=== PATIENT | female | born 1980 | race Caucasian/White ===

== ENCOUNTER → 2021-05-03 16:49 | Outpatient (CLI) | payer OTHER, SELFPAY ==
--- NOTE | ~2021-05-03 | MM_ITS ---
EXAMINATION: MM scrn bernice implant BI w nishant HISTORY: Screening mammogram TECHNIQUE: Craniocaudal and mediolateral oblique 3-D tomosynthesis images with implant displacement a nd synthetic 2-D images were generated. Craniocaudal and mediolateral oblique views of the breasts wi thout implant displacement were obtained using full field digital mammography. CAD analysis was submi tted and interpreted. COMPARISON: None, baseline BREAST PARENCHYMAL COMPOSITION: There are scattered areas of fibroglandular density. FINDINGS: There is no evidence of suspicious mass, calcification, or architectural distortion to sugg est malignancy in either breast. IMPRESSION: 1. No mammographic evidence of malignancy. 2. Recommend routine screening mammography in one year. BI-RADS Category 1: Negative Reviewed, dictated and finalized at location A.
== END ==
PROVIDERS: PCP Nurse Practitioner Family; Visit Provider Obstetrics & Gynecology
DX: Z12.31 Encounter for screening mammogram for malignant neoplasm of breast (principal)
CPT/HCPCS: 77063; 77067

== ENCOUNTER 2021-12-21 16:41 | Emergency (ER) | payer BC, OTHER, SELFPAY ==
[2021-12-21] VITALS (20 sets, daily range): BP systolic 101–121; BP diastolic 63–87; PULSE 51–81; RESP 13–21; TEMP 36.8–37; O2SAT 99
--- NOTE | ~2021-12-21 | XR_ITS ---
XR chest 2V DATE: 12/21/2021 17:41 INDICATION: Palpitations TECHNIQUE: PA and lateral chest COMPARISON: None FINDINGS: Normal heart size. No hilar or mediastinal enlargement. No pulmonary infiltrate or consolid ation, pleural effusion or pulmonary vascular congestion or pneumothorax. Included skeletal structure s are unremarkable. IMPRESSION: Negative Reviewed, dictated and finalized at location A. IMPRESSION: Negative
--- NOTE | 2021-12-21 16:45 | ECG_ITS ---
Measurements Intervals [place] Rate: 76 P: 35 SC: 175 QRS: 2 QRSD: 73 T: 13 QT: 359 QTc: 404 Interpretive Statements SINUS RHYTHM WITH SINUS ARRHYTHMIA NORMAL ECG NO PREVIOUS ECG AVAILABLE FOR COMPARISON Electronically Signed On 12-21-2021 19:05:56 CDT by Kee Lowery D.O.
[2021-12-21 17:27] LABS: Basophils Absolute Auto 0.1 K/mm3 (0.0-0.1); Basophils Percent Auto 1.1 % (0.2-1.2); Eosinophils Absolute Auto 0.1 K/mm3 (0-0.3); Eosinophils Percent Auto 2.3 % (0-4.4); Hematocrit 38.3 % (37.0-47.0); Hemoglobin 13.3 g/dL (12.0-15.0); Immature Granulocyte Absolute 0.01 K/mm3 (0.00-0.031); Immature Granulocyte Percent A 0.2 % (0-0.5); Lymphocytes Absolute Auto 1.14 K/mm3 (0.9-3.2); Lymphocytes Percent Auto 25.7 % (18.3-44.2); Mean Corpuscular HGB Conc 34.7 g/dl (32-36); Mean Corpuscular Hemoglobin 30.1 pg (26-34); Mean Corpuscular Volume 86.7 fl (80-100); Monocytes Absolute Auto 0.4 K/mm3 (0.1-0.6); Monocytes Percent Auto 8.8 % (2.6-8.5); Neutrophils Absolute Auto 2.8 K/mm3 (1.3-6.7); Neutrophils Percent Auto 61.9 % (45.5-73.1); Platelet Count Result 241 k/mm3 (150-375); Red Blood Count 4.42 M/mm3 (4.2-5.4); Red Cell Distribution Width 11.9 % (11.5-14.5); White Blood Count 4.4 K/mm3 (4.5-10.0)
[2021-12-21 17:40] LABS: Alanine Aminotransferase 17 U/L (6-35); Albumin Level 4.3 g/dL (3.5-5.1); Alkaline Phosphatase 28 U/L (38-126); Anion Gap 8 mmol/L (8-16); Aspartate Amino Transferase 19 U/L (14-36); Bilirubin,Total 0.8 mg/dL (0.2-1.3); Blood Urea Nitrogen 9 mg/dL (7-17); Calcium 8.6 mg/dL (8.4-10.2); Carbon Dioxide 25 mmol/L (22-30); Chloride 105 mmol/L (98-107); Estimated CRCL calculation 69 ml/min; Estimated Glomerular Filt Rate > 60; Glucose 87 mg/dL (65-110); Lipase 26 U/L (23-300); Potassium 3.5 mmol/L (3.4-5.0); Sodium 138 mmol/L (137-145)
[2021-12-21 17:41] LABS: INR 1.2; Prothrombin Time 14.6 Seconds (11.1-14.7)
[2021-12-21 17:42] LABS: Partial Thromboplastin Time 31.2 SECONDS (22.3-36.8)
[2021-12-21 17:53] LABS: Troponin I < 0.012 ng/mL (0.000-0.034)
--- NOTE | 2021-12-21 18:31 | ED.ARRPALP ---
HPI - Arrhythmia/Palpitations General Chief Complaint: Arrhythmia/Palpitations Stated Complaint: palpations Time Seen by Provider: 12/21/21 17:43 History of Present Illness HPI narrative: Patient is a 41-year-old female with a history of hypothyroidism presenting with palpitations. Patient states that she has had several months of intermittent palpitations which she is currently having worked up. States that today she again developed palpitations that felt typical of her episodes but she then became short of breath and lightheaded. She became concerned that something more serious was going on so she came in for evaluation. She states that she has an appointment with her PCP in 1 week as well as an appointment with a professor of psychology regarding her ongoing palpitations. She does take propanolol as needed. States that recently she has had URI symptoms. She is vaccinated for COVID but not influenza. She denies fevers, headache, cough, abdominal pain, vomiting, diarrhea, leg swelling, dysuria. Related Data Home Medications Medication Instructions Recorded Confirmed levothyroxine 112 mcg tablet 112 mcg PO DAILY 03/08/21 03/08/21 (Synthroid) linaclotide 145 mcg capsule 145 mcg PO DAILY 03/08/21 03/08/21 (Linzess) propranolol 10 mg tablet See Rx Instructions .Route .COMPLEX 12/21/21 topiramate 50 mg tablet (Topamax) 50 mg PO DAILY 12/21/21 Allergies Allergy/AdvReac Type Severity Reaction Status Date / Time codeine Allergy Unknown Dizziness Verified 12/21/21 17:29 [facility] Past Medical History Medical History Anemia Anxiety and depression major depressive disorder - on meds Constipation Encounter for well woman exam Epilepsy no seizures in 12 years Hyperthyroidism Migraines Screening mammogram, encounter for Surgical History Surgical History Delivery by section 09/19/1999 ; 07/19/2001; 07/19/2004 History of appendectomy (~05/20/99) History of gynecological procedure (09/13/11) hscope D&C / Novasure ablation removal of IUD / Lap T/L History of gynecological procedure (03/13/11) left ovarian cystectomy History of gynecological procedure (05/12/09) mirena iud insertion/ iud removal 09/13/2011 [place] History of gynecological procedure (09/22/07) mirena iud removal /iud insertion 06/18/2005 History of robot-assisted laparoscopic hysterectomy (05/03/15) RATLH History of tonsillectomy (06/18/09) Family History Family History Father Cerebrovascular accident Grandparent Diabetes mellitus maternal grandmother Sibling Hypertension brother Social History Social History Smoking status: Former smoker Tobacco type: cigarettes and e-cigarettes/vaping Smoking end date: 02/18/11 Alcohol intake: never Substance use: never Substance use type: does not use 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 HEAD: Normocephalic, atraumatic. EYES: PERRLA and EOMI. ENT: Nares clear, no rhinorrhea or epistaxis. Mucous membranes moist. NECK: Supple. CHEST: Clear to auscultation. No respiratory distress. HEART: Regular rate and rhythm. No murmur heard. Normal peripheral pulses. ABDOMEN: Soft, nontender, nondistended, normal active bowel sounds. EXTREMITIES: Normal range of motion. No edema. SKIN: Warm, dry, no rash. NEURO: No focal deficits. Alert and oriented x3. PSYCH: Normal mood and affect. Course Vital Signs Vital signs: Vital Signs Temperature 98.6 F 12/21/21 16:53 Pulse Rate 81 12/21/21 16:53 Respiratory Rate 20
--- NOTE | 2021-12-21 18:43 | PC.NURSE ---
Talked to Orestes in lab at 18:44 to add on MG
[2021-12-21] MEDS: SODIUM CHLORIDE 0.9% IV 1,000 ML 999 ML IV CONT (19:24)
[2021-12-21 19:56] LABS: Influenza A QL RT-PCR Negative (Negative); Influenza B QL RT-PCR Negative (Negative); SARS-CoV-2 RNA PCR Negative
[2021-12-21 20:26] LABS: Troponin I < 0.012 ng/mL (0.000-0.034)
[2021-12-21 20:41] LABS: Free T4 Free Thyroxine Reflex 0.89 ng/dL (0.78-2.19)
[2021-12-21 21:21] LABS: Total Triiodothyronine (T3) 0.96 NG/ML (0.97-1.69)
== END 2021-12-21 21:13 | disposition home or self-care (01) ==
PROVIDERS: Emergency Medicine; Emergency Provider Emergency Medicine; PCP Nurse Practitioner Family
DX: R00.2 Palpitations (principal); R06.02 Shortness of breath; Z20.822 Contact with and (suspected) exposure to COVID-19; G40.909 Epilepsy, unspecified, not intractable, without status epilepticus; E05.90 Thyrotoxicosis, unspecified without thyrotoxic crisis or storm; F41.9 Anxiety disorder, unspecified; F32.9 Major depressive disorder, single episode, unspecified; Z86.2 Personal history of diseases of the blood and blood-forming organs and certain disorders involving the immune mechanism; Z87.891 Personal history of nicotine dependence
CPT/HCPCS: 36415; 71046; 80053; 83690; 83735; 84439; 84443; 84480; 84484; 85025; 85610; 85730; 87502; 93005; 96360; 99284; J7030; U0003; U0005

== ENCOUNTER 2022-03-08 14:42 | Outpatient (CLI) | payer BC, OTHER, SELFPAY ==
--- NOTE | ~2022-03-08 | XR_ITS ---
XR chest 2V DATE: 03/08/2022 15:02 INDICATION: Dyspnea on exertion TECHNIQUE: PA and lateral views COMPARISON: 12/21/2021 PA and lateral chest FINDINGS: Normal heart size. No hilar or mediastinal enlargement. No pulmonary infiltrate or consol idation, pulmonary vascular congestion or pleural effusion or pneumothorax. IMPRESSION: Negative Reviewed, dictated and finalized at location L. ING SUPERVISOR IMPRESSION: Negative
== END 2022-03-08 14:43 | disposition home or self-care (01) ==
PROVIDERS: PCP Nurse Practitioner Family; Visit Provider Nurse Practitioner Adult Health
DX: R06.09 Other forms of dyspnea (principal)
CPT/HCPCS: 71046

== ENCOUNTER → 2022-05-23 15:40 | Outpatient (CLI) | payer BC, OTHER, SELFPAY ==
--- NOTE | ~2022-05-23 | MM_ITS ---
EXAMINATION: MM scrn bernice implant BI w nishant HISTORY: Screening mammogram TECHNIQUE: Craniocaudal and mediolateral oblique 3-D tomosynthesis images with implant displacement a nd synthetic 2-D images were generated. Craniocaudal and mediolateral oblique views of the breasts wi thout implant displacement were obtained using full field digital mammography. CAD analysis was submi tted and interpreted. COMPARISON: 05/03/2021 BREAST PARENCHYMAL COMPOSITION: There are scattered areas of fibroglandular density. FINDINGS: There is no evidence of suspicious mass, calcification, or architectural distortion to sugg est malignancy in either breast. There has been no suspicious interval change. IMPRESSION: 1. No mammographic evidence of malignancy. 2. Recommend routine screening mammography in one year. BI-RADS Category 1: Negative Reviewed, dictated and finalized at location A.
== END ==
PROVIDERS: PCP Obstetrics & Gynecology; Visit Provider Obstetrics & Gynecology
DX: Z12.31 Encounter for screening mammogram for malignant neoplasm of breast (principal)
CPT/HCPCS: 77063; 77067

== ENCOUNTER 2023-05-01 23:42 | Emergency (ER) | payer BC, OTHER, SELFPAY ==
--- NOTE | ~2023-05-01 | CT_ITS ---
CT of the Abdomen and Pelvis: Indication: Abdominal pain, prior liposuction Technique: 2.5 mm axial scans were obtained through the abdomen and pelvis following intravenous adm inistration of 100 cc of Omnipaque 350. Dose reduction technique was used on this scan by utilizing a utomated exposure control and iterative reconstruction technique. The dose-length product (DLP) was 4 61.43 mGy-cm. Findings: Scans through the lung bases are unremarkable. The liver, spleen, pancreas, gallbladder, adrenals and kidneys are within normal limits. No evidence of aortic aneurysm. No lymphadenopathy. No bowel obstruction or bowel wall thickening. There is no evidence to suggest acute appendicitis. Images through the pelvis were performed. Urinary bladder unremarkable. There is a septated cyst vers us multiple cysts in the right ovary, with the conglomeration measuring up to approximately 4.8 x 2.3 cm in size. Small amount of free fluid present in the pelvis. Impression: There is a multiseptated cyst versus multiple small cysts in the right ovary, measuring in overall ex tent to 4.8 x 2.3 cm. Consider pelvic ultrasound further assess the right ovary, as indicated. Reviewed, dictated and finalized at location M. Impression: There is a multiseptated cyst versus multiple small cysts in the right ovary, m easuring in overall extent to 4.8 x 2.3 cm. Consider pelvic ultrasound further assess the right ovary, as indicated.
[2023-05-01 23:45] VITALS: BP 128/70; PULSE 95; RESP 18; TEMP 36.4; O2SAT 100
[2023-05-01 23:54] VITALS: PULSE 87; RESP 12; O2SAT 99
[2023-05-01 23:55] VITALS: BP 130/67; O2SAT 99
[2023-05-02] VITALS (9 sets, daily range): BP systolic 116–128; BP diastolic 68–82; PULSE 80–82; RESP 16–17; O2SAT 96–100
[2023-05-02 00:26] LABS: Appearance Urine Clear (Clear); Bilirubin Urine Negative (Negative); Blood Urine Negative (Negative); Color Urine Yellow (Yellow); Glucose Urine UA Negative (Negative); Ketones Urine Negative (Negative); Leukocyte Esterase Ur Negative LEU/UL (Negative); Nitrate Urine Negative (Negative); Protein Urine Negative (Negative); Specific Grav Ur 1.018 (1.001-1.035)
[2023-05-02 00:29] LABS: Add Urine Microscopic? NO
[2023-05-02 00:32] LABS: Basophils Absolute Auto 0.1 K/mm3 (0.0-0.1); Basophils Percent Auto 0.7 % (0.2-1.2); Eosinophils Absolute Auto 0.2 K/mm3 (0-0.3); Eosinophils Percent Auto 2.4 % (0-4.4); Hematocrit 38.7 % (37.0-47.0); Hemoglobin 13.1 g/dL (12.0-15.0); Immature Granulocyte Absolute 0.13 K/mm3 (0.00-0.031); Immature Granulocyte Percent A 1.6 % (0-0.5); Lymphocytes Absolute Auto 1.14 K/mm3 (0.9-3.2); Lymphocytes Percent Auto 13.6 % (18.3-44.2); Mean Corpuscular HGB Conc 33.9 g/dl (32-36); Mean Corpuscular Hemoglobin 30.3 pg (26-34); Mean Corpuscular Volume 89.4 fl (80-100); Monocytes Absolute Auto 0.7 K/mm3 (0.1-0.6); Neutrophils Absolute Auto 6.2 K/mm3 (1.3-6.7); Neutrophils Percent Auto 73.7 % (45.5-73.1); Platelet Count Result 271 k/mm3 (150-375); Red Blood Count 4.33 M/mm3 (4.2-5.4); White Blood Count 8.4 K/mm3 (4.5-10.0)
[2023-05-02 00:35] LABS: Alanine Aminotransferase 16 U/L (6-35); Alkaline Phosphatase 30 U/L (38-126); Anion Gap 7 mmol/L (8-16); Aspartate Amino Transferase 20 U/L (14-36); Bilirubin,Total 0.7 mg/dL (0.2-1.3); Blood Urea Nitrogen 11 mg/dL (7-17); Calcium 9.3 mg/dL (8.4-10.2); Carbon Dioxide 27 mmol/L (22-30); Chloride 101 mmol/L (98-107); Estimated CRCL calculation 98 ml/min; Estimated Glomerular Filt Rate > 60; Glucose 101 mg/dL (65-110); Lipase 52 U/L (23-300); Potassium 3.4 mmol/L (3.4-5.0); Sodium 135 mmol/L (137-145)
--- NOTE | 2023-05-02 00:48 | ED.ABDPAIN ---
HPI - Abdominal Pain General Chief Complaint: Abdominal Pain <IVELISSE Montiel Last Filed: 05/02/23 02:46> Stated Complaint: abd pain - ruq <IVELISSE Montiel Last Filed: 05/02/23 02:46> Time Seen by Provider: 05/02/23 00:10 <IVELISSE Montiel Last Filed: 05/02/23 02:46> Source: patient <IVELISSE Montiel Last Filed: 05/02/23 02:46> Mode of arrival: ambulatory <IVELISSE Montiel Last Filed: 05/02/23 02:46> Limitations: no limitations <IVELISSE Montiel Last Filed: 05/02/23 02:46> History of Present Illness HPI narrative: This is a 42-year-old female who presents to the ED with chief complaint of right-sided abdominal pain beginning around 8:00 a.m. this morning. Reports pain located to the right lateral abdomen and generally does not radiate. Endorses intermittent nausea but no vomiting. History of liposuction 3 weeks ago but states she had been doing well with this overall. She stop taking pain meds after a few days. She does endorse chronic constipation and is not sure of her last bowel movement. She states she is still passing gas. Denies flank pain, troubles with urination, fevers, chills. Endorses other surgical history of appendectomy <IVELISSE Montiel Last Filed: 05/02/23 02:46> Related Data Home Medications: Home Medications Medication Instructions Recorded Confirmed linaclotide 145 mcg capsule 145 mcg PO DAILY 03/08/21 03/20/23 (Linzess) propranolol 10 mg tablet See Rx Instructions .Route .COMPLEX 12/21/21 03/20/23 cyanocobalamin (vitamin B-12) 100 mcg subcut WEEKLY 03/20/23 03/20/23 1,000 mcg/mL injection solution levothyroxine 125 mcg capsule 125 mcg PO DAILY 03/20/23 03/20/23 <IVELISSE Montiel Last Filed: 05/02/23 02:46> Allergies/Adverse Reactions: Allergies Allergy/AdvReac Type Severity Reaction Status Date / Time codeine Allergy Intermediate Dizziness Verified 05/01/23 23:48 <Kurt Zimmerman PA-C - Last Filed: 05/02/23 02:46> Review of Systems Review of Systems: All systems as dictated in HPI <Kurt Zimmerman PA-C - Last Filed: 05/02/23 02:46> [facility] Past Medical History Medical History: Medical History Anemia Anxiety and depression major depressive disorder - on meds Constipation Encounter for well woman exam Epilepsy no seizures in 12 years Hyperthyroidism Migraines Screening for breast cancer Screening mammogram, encounter for <Kurt Zimmerman PA-C - Last Filed: 05/02/23 02:46> Surgical History Surgical History: Surgical History Delivery by section 09/19/1999 ; 07/19/2001; 07/19/2004 History of appendectomy (~05/20/99) History of gynecological procedure (09/13/11) hscope D&C / Novasure ablation removal of IUD / Lap T/L History of gynecological procedure (03/13/11) left ovarian cystectomy History of gynecological procedure (05/12/09) mirena iud insertion/ iud removal 09/13/2011 in [place] History of gynecological procedure (09/22/07) mirena iud removal /iud insertion 06/18/2005 History of robot-assisted laparoscopic hysterectomy (05/03/15) RATL History of tonsillectomy (06/18/09) <Kurt Zimmerman PA-C - Last Filed: 05/02/23 02:46> Family History Family History: Family History Father Cerebrovascular accident Grandparent Diabetes mellitus maternal grandmother Sibling Hypertension brother <Kurt Zimmerman PA-C - Last Filed: 05/02/23 02:46> Social History Social History: Social History (Updated 03/20/23 @ 09:10 by JOSE Garcia) Smoking status: Former smoker Tobacco type: cigarettes and e-cigarettes/vaping Smoking end date: 02/18/11 Alcohol intake: current Drinks per week: 2 Substance use: never Substance use type: does not use [employer]
[2023-05-02] MEDS: KETOROLAC 15 MG/ML VIAL (*BKC) IV PUSH (01:20)
[2023-05-02] MEDS: ONDANSETRON INJ 4 MG/2 ML VIAL IV PUSH (01:21)
--- NOTE | 2023-05-02 02:34 | PC.NURSE ---
Assumed care of pt from FELIPE Guerra.
== END 2023-05-02 04:21 | disposition home or self-care (01) ==
PROVIDERS: Emergency Medicine; Emergency Provider Physician Assistant; PCP Nurse Practitioner Family
DX: K59.00 Constipation, unspecified (principal); F41.9 Anxiety disorder, unspecified; F32.A Depression, unspecified; D64.9 Anemia, unspecified
CPT/HCPCS: 36415; 74177; 80053; 83690; 85025; 96374; 96375; 99284; J1885; J2405; Q9967

== ENCOUNTER 2023-06-17 08:44 | Outpatient (CLI) | payer BC, OTHER, SELFPAY ==
--- NOTE | ~2023-06-17 | XR_ITS ---
XR wrist RT min 3V 06/17/2023 09:00 INDICATION: Right wrist pain PROCEDURE: 4 views right wrist COMPARISON: No prior studies for comparison. FINDINGS: Fracture, dislocation or subluxation is not identified. The soft tissues appear within norm al limits. No foreign bodies are identified. IMPRESSION: 1: NO ACUTE BONE OR JOINT ABNORMALITY IDENTIFIED. Reviewed, dictated and finalized at location B.
== END 2023-06-17 08:45 | disposition home or self-care (01) ==
PROVIDERS: PCP Nurse Practitioner Family; Visit Provider Family Medicine
DX: M25.531 Pain in right wrist (principal)
CPT/HCPCS: 73110

== ENCOUNTER 2023-08-02 11:20 | Outpatient (CLI) | payer BC, OTHER, SELFPAY ==
--- NOTE | ~2023-08-02 | MM_ITS ---
EXAMINATION: MM scrn bernice implant BI w nishant HISTORY: Screening TECHNIQUE: Craniocaudal and mediolateral oblique 3-D tomosynthesis images with implant displacement a nd synthetic 2-D images were generated. Craniocaudal and mediolateral oblique views of the breasts wi thout implant displacement were obtained using full field digital mammography. CAD analysis was submi tted and interpreted. COMPARISON: Comparison to multiple prior studies sequentially, with oldest reviewed study dated 05/03. BREAST PARENCHYMAL COMPOSITION: Not dense: There are scattered areas of fibroglandular density. FINDINGS: There is no evidence of suspicious mass, calcification, or architectural distortion to sugg est malignancy in either breast. There has been no suspicious interval change. IMPRESSION: 1. No mammographic evidence of malignancy. 2. Recommend routine screening mammography in one year. BI-RADS Category 1: Negative Reviewed, dictated and finalized at location B.
== END 2023-08-02 11:21 ==
LOC: MICIMG 11:22
PROVIDERS: PCP Obstetrics & Gynecology; Visit Provider Obstetrics & Gynecology
DX: Z12.31 Encounter for screening mammogram for malignant neoplasm of breast (principal)
CPT/HCPCS: 77063; 77067

== ENCOUNTER 2024-05-12 15:49 | Outpatient (CLI) | payer BC, OTHER, SELFPAY ==
--- NOTE | ~2024-05-12 | MR_ITS ---
EXAMINATION: MR shoulder RT wo con DATE: 05/12/2024 16:19 INDICATION: Right rotator cuff tendinitis TECHNIQUE: Magnetic resonance imaging (MRI) of the right shoulder was performed without intravenous c ontrast. Sequences included axial PD-weighted FS FSE, coronal oblique PD-weighted FS FSE, coronal obl ique T2-weighted FS FSE, sagittal PD-weighted FS FSE, and sagittal T1-weighted SE. COMPARISON: None. FINDINGS: Coracoacromial arch: The acromion undersurface is curved in morphology (type II). The coracoacromial ligament is normal. M inimal acromioclavicular osteoarthritis. Rotator cuff: Mild subscapularis tendinopathy with small longitudinal split tear extending 1.5 cm medial to lateral from the lesser tuberosity footplate along the otherwise intact fibers of the tendon at the junction of the cephalad and middle thirds of the tendon. The supraspinatus, infraspinatus and teres minor te ndons are normal. Normal rotator cuff muscle bulk and signal. Biceps tendon, glenoid labrum and glenohumeral cartilage: Long head of the biceps tendon is normal. Glenoid labrum is normal. Glenohumeral cartilage is normal. Fluid: Small amount of fluid in the long head biceps tendon sheath which is disproportionate to the physiolo gic amount fluid in the glenohumeral joint space consistent with mild bicipital tenosynovitis. No loo se osteochondral bodies. No abnormal fluid signal in the subacromial/subdeltoid bursa to suggest burs itis. Bones and other: Normal marrow signal with no edema, fracture or abnormal marrow replacing process. Thickening of the capsule at the axillary recess and thickened of the coracohumeral ligament and surrounding soft tissu es resulting decrease in the normal fat signal at the rotator cuff interval. Both findings can be see n in setting of adhesive capsulitis. IMPRESSION: 1. Constellation of findings suggestive of adhesive capsulitis which is ultimately a clinical diagnos is. 2. Mild subscapular tendinopathy and small longitudinal split tear of the distal tendon. 3. Mild bicipital tenosynovitis. Reviewed, dictated and finalized at location B. IMPRESSION: 1. Constellation of findings suggestive of adhesive capsulitis which is ultimat mark a clinical diagnosis. 2. Mild subscapular tendinopathy and small longitudinal split tear of the dista l tendon. 3. Mild bicipital tenosynovitis.
== END 2024-05-12 15:50 | disposition home or self-care (01) ==
LOC: MICIMG 15:50
PROVIDERS: PCP Nurse Practitioner Family; Visit Provider Nurse Practitioner Family
DX: M67.813 Other specified disorders of tendon, right shoulder (principal); M75.21 Bicipital tendinitis, right shoulder
CPT/HCPCS: 73221

== ENCOUNTER 2024-08-06 13:27 | Outpatient (CLI) | payer BC, SELFPAY ==
--- NOTE | ~2024-08-06 | MM_ITS ---
EXAMINATION: MM scrn bernice implant BI w nishant HISTORY: Screening mammogram TECHNIQUE: Craniocaudal and mediolateral oblique 3-D tomosynthesis images with implant displacement a nd synthetic 2-D images were generated. Craniocaudal and mediolateral oblique views of the breasts wi thout implant displacement were obtained using full field digital mammography. CAD analysis was submi tted and interpreted. COMPARISON: Comparison to multiple prior studies sequentially, with oldest reviewed study dated 05/03. BREAST PARENCHYMAL COMPOSITION: Not dense: There are scattered areas of fibroglandular density. FINDINGS: There is no evidence of suspicious mass, calcification, or architectural distortion to sugg est malignancy in either breast. There has been no suspicious interval change. IMPRESSION: 1. No mammographic evidence of malignancy. 2. Recommend routine screening mammography in one year. BI-RADS Category 1: Negative Reviewed, dictated and finalized at location A.
== END 2024-08-06 13:28 | disposition home or self-care (01) ==
LOC: MICIMG 13:28
PROVIDERS: PCP Nurse Practitioner Family; Visit Provider Obstetrics & Gynecology
DX: Z12.31 Encounter for screening mammogram for malignant neoplasm of breast (principal)
CPT/HCPCS: 77063; 77067